=== PATIENT | female | born 1985 | race African-American/Black ===

== ENCOUNTER 2016-11-03 20:46 | Inpatient (IN) | payer BC ==
[~2016-11-03 20:46] MED LIST: DIABETA PO ONE
[2016-11-03] MEDS ORDERED: POLYCILLIN/NS 2 GM/100 ML 2 GM/100 ML BAG IV ONE (21:48)
[2016-11-03] MEDS ORDERED: ZOFRAN IV PRN (21:48)
[2016-11-03] MEDS ORDERED: CERVIDIL VG ONE (21:48)
[2016-11-03] MEDS ORDERED: MINERAL OIL PO PRN (21:48)
[2016-11-03] MEDS ORDERED: ePHEDrine SULFATE IV PRN (21:48)
[2016-11-03] MEDS ORDERED: NARCAN 0.4 MG/1 ML IV PRN (21:48)
[2016-11-03] MEDS ORDERED: BRETHINE SUB-Q PRN (21:48)
[2016-11-03] MEDS ORDERED: BRETHINE IVP PRN (21:48)
[2016-11-03] MEDS ORDERED: XYLOCAINE 2% INFILTRATI ONE (21:48)
[2016-11-03] MEDS ORDERED: PITOCin/NS 20 UNIT/1000ML DRIP 20 UNITS/1,000 ML BAG IV SCH (22:00)
[2016-11-03 22:12] LABS: Hematocrit 39.6 % (30.3-42.9); Hemoglobin 13.5 gm/dl (10.1-14.3); Mean Corpuscular HGB Conc 34 % (30-34); Mean Corpuscular Hemoglobin 29 pg (28-32); Mean Corpuscular Volume 85 fl (79-97); Platelet Count 191 K/mm3 (140-440); Red Blood Count 4.64 M/mm3 (3.65-5.03); Red Cell Distribution Width 14.7 % (13.2-15.2)
--- NOTE | 2016-11-03 22:56 | History and Physical Report ---
History of Present Illness Date of examination: 11/03/16 Date of admission: 11/03/16 20:46 Chief complaint: Presents for scheduled induction of labor due to Diabetes History of present illness: Early entry to care, Second trimester complicated by Diabetes, co- laurie with [facility], taking Glyburide. Past History Past Medical History: other (Gestational Diabetes x 3) Past Surgical History: no surgical history Family/Genetic History: diabetes (MGM, PGF), heart disease (father), hypertension (Father) Social history: no significant social history, - Obstetrical History Expected Date of Delivery: 11/08/16 Actual Gestation: 39 Week(s) 2 Day(s) : 6 Para: 3 Spontaneous Abortions: 2 Number of Living Children: 3 #1 Gender: Female year: 2,008 Birthweight: 3.289 kg Method of Delivery: Vaginal Gestational age at delivery: 39 #2 Infant Gender: Female year: 2,[birth year] Birthweight: 3.062 kg Method of Delivery: Vaginal Gestational age at delivery: 39 #3 Gender: Female year: 2,014 Birthweight: 3.827 kg Method of Delivery: Vaginal Gestational age at delivery: 2,014 Medications and Allergies Allergies Allergy/AdvReac Type Severity Reaction Status Date / Time No Known Allergies Allergy Verified 08/27/13 13:36 Home Medications Medication Instructions Recorded Confirmed Last Taken Type Vit #108/Iron/FA 1 tab PO DAILY 08/27/13 08/27/13 08/26/13 08:00 History [ One Tablet] Active Meds: Active Medications Butorphanol Tartrate (Stadol) 2 mg IV Q2H PRN PRN Reason: Pain , Severe (7-10) Ampicillin Sodium (Polycillin/Ns 1 Gm/50 Ml) 1 gm in 50 mls @ 100 mls/hr IV Q4HR REBECCA PRN Reason: Protocol Lactated Ringer's (Lactated Ringers) 1,000 mls @ 125 mls/hr IV DIRECT REBECCA Oxytocin/Sodium Chloride (Pitocin/Ns 20 Unit/1000ml Drip) 20 units in 1,000 mls @ 125 mls/hr IV DIRECT REBECCA Mineral Oil (Mineral Oil) 30 ml PO QHS PRN PRN Reason: Constipation Naloxone HCl (Narcan 0.4 Mg/1 Ml) 0.1 mg IV Q2MIN PRN PRN Reason: Res Rate </= 8 or 02 SAT < 92% Ondansetron HCl (Zofran) 4 mg IV Q8H PRN PRN Reason: Nausea And Vomiting Review of Systems All systems: negative - Vital Signs Vital signs: Vital Signs Pulse BP 100 H 114/69 11/03/16 21:06 11/03/16 21:06 Temp Pulse Resp BP Pulse Ox 97.2 F L 105 H 16 114/69 98 11/03/16 21:19 11/03/16 21:07 11/03/16 21:19 11/03/16 21:06 11/03/16 21:07 - Physical Exam Breasts: Positive: normal Cardiovascular: Regular rate Lungs: Positive: Clear to auscultation, Normal air movement Abdomen: Positive: normal appearance, soft, normal bowel sounds Genitourinary (Female): Positive: normal external genitalia, normal perenium Vagina: Positive: normal moisture Uterus: Positive: enlarged Anus/Rectum: Positive: normal perianal skin Extremities: Positive: normal - Obstetrical FHR: category 1 Uterine Contraction Monitor Mode: External Cervical Dilatation: 1 (VTX, Intact) Cervical Effacement Percentage: 50 station: -3 Uterine Contraction Pattern: Irregular Uterine Tone Measurement Phase: Resting Uterine Contraction Intensity: Mild Results Result Diagrams: 11/03/16 21:30 All other labs normal. Assessment and Plan A: IUP at 39 2/7 Weeks Category I Tracing Pre-Gestational Diabetes GBS Positive P: Admit to L&D per Routine Orders Cervidil Induction Accuchecks per orders GBS Prophylaxis
[2016-11-04] MEDS ORDERED: POLYCILLIN/NS 2 GM/100 ML 2 GM/100 ML BAG IV ONE ×2 (00:55→01:01)
[2016-11-04] MEDS: LACTATED RINGERS 1,000 ML IV SCH ×2 (01:06→10:52)
[2016-11-04] MEDS: STADOL IV PRN ×2 (04:37→09:47)
[2016-11-04] MEDS: POLYCILLIN/NS 1 GM/50 ML 1 GM/50 ML BAG IV SCH ×3 (05:59→13:21)
[2016-11-04] MEDS ORDERED: D50W (25GM) Syringe IV PRN (09:30)
--- NOTE | 2016-11-04 10:05 | Progress Note ---
Assessment and Plan A: IUP at 39 3/7 Weeks Category I Tracing Pre-Gestational Diabetes GBS Positive P: Cervidil Removed AROM Start Pitocin Augmentation Continue Accuchecks q 4hours Continue GBS Prophylaxis Subjective - Subjective Date of service: 11/04/16 Interval history: Early entry to care, Second trimester complicated by Diabetes, co- laurie with [facility], taking Glyburide. Patient reports: contractions, other (Feels sleepy under Stadol) Objective - Vital Signs Vital Signs: Vital Signs - 12hr 11/03/16 11/03/16 11/03/16 22:55 22:56 23:04 Temperature Pulse Rate 100 H 105 H 98 H Respiratory Rate Blood Pressure 108/66 102/64 100/63 O2 Sat by Pulse Oximetry 11/03/16 11/03/16 11/03/16 23:15 23:24 23:35 Temperature Pulse Rate 91 H 94 H 97 H Respiratory Rate Blood Pressure 114/63 110/59 109/61 O2 Sat by Pulse Oximetry 11/03/16 11/03/16 11/04/16 23:44 23:56 00:05 Temperature Pulse Rate 107 H 111 H 107 H Respiratory Rate Blood Pressure 110/61 94/62 96/54 O2 Sat by Pulse Oximetry 11/04/16 11/04/16 11/04/16 00:14 00:26 00:34 Temperature Pulse Rate 102 H 98 H 100 H Respiratory Rate Blood Pressure 91/52 94/53 97/49 O2 Sat by Pulse Oximetry 11/04/16 11/04/16 11/04/16 00:45 00:55 01:20 Temperature Pulse Rate 97 H 96 H 102 H Respiratory Rate Blood Pressure 105/58 99/57 101/63 O2 Sat by Pulse Oximetry 11/04/16 11/04/16 11/04/16 01:43 02:12 02:42 Temperature Pulse Rate 99 H 98 H 99 H Respiratory Rate Blood Pressure 106/64 109/70 108/63 O2 Sat by Pulse Oximetry 11/04/16 11/04/16 11/04/16 03:12 03:43 04:37 Temperature Pulse Rate 94 H 98 H Respiratory 16 Rate Blood Pressure 99/62 114/68 O2 Sat by Pulse Oximetry 11/04/16 11/04/16 11/04/16 04:43 05:07 05:14 Temperature Pulse Rate 95 H 95 H Respiratory 16 Rate Blood Pressure 104/58 97/55 O2 Sat by Pulse Oximetry 11/04/16 11/04/16 11/04/16 05:43 06:12 06:42 Temperature Pulse Rate 99 H 100 H 104 H Respiratory Rate Blood Pressure 100/57 101/59 98/61 O2 Sat by Pulse Oximetry 11/04/16 11/04/16 11/04/16 07:12 07:43 08:12 Temperature Pulse Rate 104 H 102 H 100 H Respiratory Rate Blood Pressure 106/61 109/63 102/60 O2 Sat by Pulse Oximetry 11/04/16 11/04/16 11/04/16 08:15 08:32 08:37 Temperature 98.5 F Pulse Rate 108 H 105 H Respiratory 18 Rate Blood Pressure O2 Sat by Pulse 96 96 Oximetry 11/04/16 11/04/16 11/04/16 08:42 08:43 08:47 Temperature Pulse Rate 104 H 108 H 103 H Respiratory Rate Blood Pressure 98/58 O2 Sat by Pulse 96 96 Oximetry 11/04/16 11/04/16 11/04/16 08:52 08:57 09:02 Temperature Pulse Rate 102 H 104 H 99 H Respiratory Rate Blood Pressure O2 Sat by Pulse 96 96 95 Oximetry 11/04/16 11/04/16 11/04/16 09:07 09:12 09:17 Temperature Pulse Rate 102 H 104 H 103 H Respiratory Rate Blood Pressure 106/67 O2 Sat by Pulse 95 95 95 Oximetry 11/04/16 11/04/16 11/04/16 09:22 09:36 09:39 Temperature Pulse Rate 54 L 108 H 97 H Respiratory Rate Blood Pressure 102/58 O2 Sat by Pulse 93 97 Oximetry 11/04/16 11/04/16 11/04/16 09:42 09:43 09:47 Temperature Pulse Rate 58 L 108 H 103 H Respiratory Rate Blood Pressure 99/58 O2 Sat by Pulse 86 95 Oximetry 11/04/16 11/04/16 11/04/16 09:49 09:52 09:57 Temperature Pulse Rate 105 H 106 H 107 H Respiratory Rate Blood Pressure O2 Sat by Pulse 94 95 94 Oximetry 11/04/16 11/04/16 10:00 10:02 Temperature Pulse Rate 105 H 104 H Respiratory Rate Blood Pressure O2 Sat by Pulse 94 94 Oximetry - Exam Breasts: normal Cardiovascular: Regular rate Lungs: Clear to auscultation, Normal air movement Abdomen: Present: normal appearance, soft, normal bowel sounds Uterus: Present: normal, firm, fundal height above umbilicus FHR: category 1 Uterine Contraction Monitor Mode: External Cervical Dilatation: 5 (Large amount of clear fluid upon AROM at 0955) Cervical Effacement Percentage: 70 station: -2 Uterine Contraction Pattern: Regular Uterine Tone Measurement Phase: Resting Uterine Contraction Intensity: Moderate Extremities: normal - Labs Labs: Laboratory Results - last 24 hr 11/03/16 11/03/16 11/03/16 21:30 21:30 21:43 WBC 10.0 RBC 4.64 Hgb 13.5 Hct 39.6 MCV 85 MCH 29 MCHC 34 RDW 14.7 Plt Count 191 POC Glucose 92 Blood Type O POSITIVE Antibody Screen Negative 11/04/16 11/04/16 01:53 06:07 WBC RBC Hgb Hct MCV MCH MCHC RDW Plt Count POC Glucose 101 101 Blood Type Antibody Screen
[2016-11-04] MEDS: PITOCin/NS 30 UNIT/500ML 30 UNITS/500 ML BAG IV SCH ×3 (10:15→12:21)
[2016-11-04] MEDS ORDERED: CYTOTEC ONE (14:25)
[2016-11-04] MEDS ORDERED: LANSINOH TP PRN (14:31)
[2016-11-04] MEDS ORDERED: MILK OF MAGNESIA PO PRN (14:31)
[2016-11-04] MEDS ORDERED: TYLENOL PO PRN (14:31)
[2016-11-04] MEDS ORDERED: DULCOLAX PR PRN (14:31)
[2016-11-04] MEDS ORDERED: TUCKS PAD TP PRN (14:31)
[2016-11-04] MEDS ORDERED: BENADRYL PO PRN (14:31)
[2016-11-04] MEDS ORDERED: PHENERGAN PR PRN (14:31)
--- NOTE | 2016-11-04 14:40 | Procedure Note ---
OB Delivery Note - Delivery Date of Delivery: 11/04/16 (1406) Surgeon: RUBEN MCELROY Estimated blood loss: 300cc - Vaginal Delivery presentation: vertex Delivery position: OA Delivery induction: cervidil Delivery augmentation: rupture of membranes, pitocin Delivery monitor: external FHT, external uterine Route of delivery: Delivery placenta: spontaneous Delivery cord: 3 umbilical vessels Episiotomy: none Delivery laceration: none Anesthesia: none Delivery comments: of a live 9'0 male over a intact perineum under IV pain control with Apgars of 8 and 9 at 1406 on 11/04/2016. Infant directly to maternal abd/ chest, skin to skin contact. Delayed cord clamping and cutting; Cord cut by Father of the Baby. Spontaneous delivery of placenta complete and intact with Salazar side presenting at 1417. Fundus is firm and midline located 4 below the U. Lochia is scant. 600mcg of Cytotec placed rectally. GBS prophylaxis x 4. Cord blood collected; Placenta discarded. - Infant A at 1 minute: 8 at 5 minutes: 9 Gender: Male (9'0)
[2016-11-04] MEDS ORDERED: SODIUM CHLORIDE FLUSH SYRINGE 10 ML IV NR (15:00)
[2016-11-04] MEDS: COLACE PO SCH ×2 (18:01→21:36)
[2016-11-04] MEDS: MOTRIN PO SCH ×2 (18:01→23:30)
[2016-11-04] MEDS ORDERED: DERMOPLAST TP PRN (18:07)
[2016-11-05 01:43] LABS: Hemoglobin 11.7 gm/dl (10.1-14.3)
[2016-11-05] MEDS ORDERED: NORCO 5/325 PO PRN (01:54)
[2016-11-05] MEDS: MOTRIN PO SCH ×3 (05:16→23:26)
[2016-11-05] MEDS ORDERED: BOOSTRIX IM ONE (06:00)
[2016-11-05] MEDS: DIABETA PO SCH ×3 (08:34→13:20)
--- NOTE | 2016-11-05 09:36 | Progress Note ---
Assessment and Plan A:PPD #1 - stable P; Discharge home in am Subjective - Subjective Date of service: 11/05/16 Principal diagnosis: Patient reports: appetite normal : doing well Objective - Vital Signs Latest vital signs: Vital Signs Temp Pulse Resp BP BP Pulse Ox 11/05/16 00:00 98.2 F 86 98/52 11/04/16 20:00 98.5 F 93 H 102/56 11/04/16 16:15 97.9 F 100 H 16 94/54 11/04/16 15:24 112 H 84/53 11/04/16 15:09 110 H 92/49 11/04/16 14:54 106 H 95/54 11/04/16 14:44 109 H 89/53 11/04/16 14:39 105 H 95/48 11/04/16 14:17 80 L 11/04/16 14:08 87 11/04/16 14:01 56 L 0 L 11/04/16 13:53 39 L 74 L 11/04/16 13:51 100 H 0 L 11/04/16 13:27 114 H 96 11/04/16 13:22 109 H 95 11/04/16 13:17 108 H 96 11/04/16 13:14 108 H 112/57 11/04/16 13:12 100 H 95 11/04/16 13:07 109 H 97 11/04/16 13:02 101 H 97 11/04/16 12:57 114 H 97 11/04/16 12:52 103 H 96 11/04/16 12:48 103 H 81 L 11/04/16 12:47 109 H 97 11/04/16 12:42 109 H 96 11/04/16 12:37 104 H 98 11/04/16 12:32 103 H 97 11/04/16 12:27 105 H 97 11/04/16 12:22 106 H 97 11/04/16 12:17 92 H 96 11/04/16 12:13 96 H 111/64 11/04/16 12:12 100 H 96 11/04/16 12:07 91 H 95 11/04/16 12:02 100 H 96 11/04/16 11:57 103 H 95 11/04/16 11:52 108 H 94 11/04/16 11:47 106 H 94 11/04/16 11:42 109 H 116/58 94 11/04/16 11:37 97 H 96 11/04/16 11:32 106 H 94 11/04/16 11:27 103 H 94 11/04/16 11:22 105 H 94 11/04/16 11:17 110 H 94 11/04/16 11:12 105 H 107/59 94 11/04/16 11:07 104 H 94 11/04/16 11:02 109 H 93 11/04/16 10:57 109 H 94 11/04/16 10:52 109 H 93 11/04/16 10:47 110 H 93 11/04/16 10:42 108 H 102/63 92 11/04/16 10:37 104 H 92 11/04/16 10:32 105 H 92 11/04/16 10:27 104 H 93 11/04/16 10:22 107 H 93 11/04/16 10:17 112 H 93 11/04/16 10:15 98.5 F 18 11/04/16 10:12 105 H 101/57 93 11/04/16 10:07 108 H 93 11/04/16 10:02 104 H 94 11/04/16 10:00 105 H 94 11/04/16 09:57 107 H 94 11/04/16 09:52 106 H 95 11/04/16 09:49 105 H 94 11/04/16 09:47 103 H 95 11/04/16 09:43 108 H 99/58 11/04/16 09:42 58 L 86 11/04/16 09:39 97 H 97 Intake and Output 11/04/16 11/05/16 11/05/16 22:59 06:59 14:59 Intake Total 120 100 Output Total 600 800 Balance -480 -700 Intake: Oral 120 100 Output: Urine 600 800 Void 600 800 Other: Total, Intake Amount 120 100 Total, Output Amount 600 800 # Voids Void 1 Estimated Blood Loss 300 - Exam Breasts: Present: deferred Cardiovascular: Present: Regular rate Abdomen: Present: soft Vulva: both: normal Uterus: Present: fundal height below umbilicus Extremities: Present: normal Deep Tendon Reflex Grade: Normal +2 - Labs Labs: Abnormal lab results 11/04/16 Range/Units 22:35 POC Glucose 145 H (70-105)
--- NOTE | 2016-11-05 09:37 | Discharge Summary ---
Providers - Providers Date of Admission: 11/03/16 20:46 Date of discharge: 11/06/16 Attending physician: ADRIANNA MORALEZ MD Primary care physician: ADRIANNA MORALEZ MD Hospitalization Reason for admission: active labor Delivery: Episiotomy: none Laceration: none Discharge diagnosis: IUP at term delivered [place] baby: male Condition at discharge: Good Disposition: DC-01 TO HOME OR SELFCARE Plan - Provider Discharge Summary Activity: routine, no sex for 6 weeks, no strenuous exercise Diet: routine Instructions: routine Additional instructions: [] Smoking cessation referral if applicable(refer to patient education folder for contact #) [] Refer to [facility] Booklet Call your doctor immediately for: * Fever > 100.5 * Heavy vaginal bleeding ( >1 pad per hour) * Severe persistent headache * Shortness of breath * Reddened, hot, painful area to leg or breast * Drainage or odor from incision. * Keep incision clean and dry at all times and follow doctor's instructions regarding bathing/showering - Follow up plan Follow up: [facility] [Provider Group] - 6 Weeks
[2016-11-05] MEDS: COLACE PO SCH ×2 (10:47→21:50)
[2016-11-06] MEDS: MOTRIN PO SCH ×2 (05:13→12:34)
[2016-11-06] MEDS: DIABETA PO SCH (08:37)
[2016-11-06] MEDS: COLACE PO SCH (10:13)
[2016-11-06 18:20] VITALS: BP 103/65
== END 2016-11-06 15:55 | disposition home or self-care (01) | DRG 774 ==
LOC: LD 20:46 → OB 11-04 16:35
PROVIDERS: ADMIT Obstetrics & Gynecology; ATTEND Obstetrics & Gynecology
PROC: 10E0XZZ Delivery of Products of Conception, External Approach (ICD-10-PCS; principal; 2016-11-04)
PROC: 3E0P7GC Introduction of Other Therapeutic Substance into Female Reproductive, Via Natural or Artificial Opening (ICD-10-PCS; 2016-11-04)
PROC: 3E0234Z Introduction of Serum, Toxoid and Vaccine into Muscle, Percutaneous Approach (ICD-10-PCS; 2016-11-04)
DX: O24.12 Pre-existing type 2 diabetes mellitus, in childbirth (principal); O99.824 Streptococcus B carrier state complicating childbirth; E11.9 Type 2 diabetes mellitus without complications; Z3A.39 39 weeks gestation of pregnancy; Z37.0 Single live birth; Z23 Encounter for immunization
CPT/HCPCS: 36415; 82962; 85014; 85018; 85027; 86592; 86850; 86900; 86901; 90471; 90715; A6250; J0290; J0595; J2590; J7120